=== PATIENT | female | born 1975 ===

== ENCOUNTER 2017-08-03 20:56 | Emergency (ER) | payer SELFPAY ==
[2017-08-03 21:11] VITALS: RESP 20; TEMP 97.9; O2SAT 100
--- NOTE | 2017-08-03 22:42 | C.PDOC ---
History Of Present Illness <Mady Hendrix - Last Filed: 08/03/17 23:20> <Andreas Olivares M - Last Filed: 08/04/17 00:56> 41 year old female presents to the ED for evaluation of a right-sided headache which has been intermittent for the past week. Patient states she slipped, fell , and hit the right side of her head against her dresser. Patient states she still has pain to the area and has been feeling "dizzy." she denies LOC, vision change, nausea, vomiting, extremity numbness/weakness. (Mady Hendrix) History Per: Patient History/Exam Limitations: no limitations Onset/Duration Of Symptoms: Days (1 week ) Current Symptoms Are (Timing): Still Present Quality: "Pain" Preceeding Symptoms: denies: Visual Disturbances Associated Symptoms: denies: Blurred Vision, Nausea, Vomiting, Extremity Weakness Additional History Per: Patient <Mady Hendrix - Last Filed: 08/03/17 23:20> <Andreas Olivares - Last Filed: 08/04/17 00:56> Time Seen by Provider: 08/03/17 21:22 Chief Complaint (Nursing): Headache Past Medical History Reviewed: Historical Data, Nursing Documentation, Vital Signs - Medical History PMH: No Chronic Diseases Surgical History: Cholecystectomy, Family History: States: Unknown Family Hx - Social History Hx Alcohol Use: No Hx Substance Use: No <Mady Hendrix - Last Filed: 08/03/17 23:20> Vital Signs: Last Vital Signs Temp 97.9 F 08/03/17 21:05 Pulse 87 08/03/17 21:05 Resp 20 08/03/17 21:05 BP 100/63 08/03/17 21:05 Pulse Ox 100 08/03/17 23:28 Review Of Systems Eyes: Negative for: Vision Change Gastrointestinal: Negative for: Nausea, Vomiting Neurological: Positive for: Headache (right-sided ), Dizziness. Negative for: Other (LOC ) <Mady Hendrix - Last Filed: 08/03/17 23:20> Physical Exam - Physical Exam Appears: Non-toxic, No Acute Distress Skin: Normal Color, Warm, Dry Head: Tenderness (mild to right temporal scalp area ), Swelling (mild to right temporal scalp area ), No Abrasion, No Laceration Eye(s): bilateral: Normal Inspection Oral Mucosa: Moist Neck: Normal ROM, No Midline Cervical Tenderness, No Paracervical Tenderness, Supple Chest: Symmetrical, No Deformity, No Tenderness Cardiovascular: Rhythm Regular Respiratory: Normal Breath Sounds Extremity: Normal ROM, Capillary Refill (less than 2 seconds) Neurological/Psych: Oriented x3, Normal Speech, Normal Cognition, Other (no focal deficits ) Gait: Steady <Mady Hendrix - Last Filed: 08/03/17 23:20> ED Course And Treatment O2 Sat by Pulse Oximetry: 100 (on RA) Pulse Ox Interpretation: Normal <Mady Hendrix - Last Filed: 08/03/17 23:20> Medical Decision Making <Mady Hendrix - Last Filed: 08/03/17 23:20> <Andreas Olivares - Last Filed: 08/04/17 00:56> Medical Decision Making: I discussed the risks of radiating. Patient prefers to undergo CT Head. CT head ordered and reviewed. (Mady Hendrix) ct head - nad, will discharge patient home to follow up with pmd in 2 days. ( Andreas Olivares) Disposition - Disposition Disposition Time: 23:20 - POA Present On Arrival: None <Mady Hendrix - Last Filed: 08/03/17 23:20> Counseled Patient/Family Regarding: Studies Performed, Diagnosis, Need For Followup, Rx Given <Andreas Olivares - Last Filed: 08/04/17 00:56> - Disposition Referrals: [facility] [Outside] Disposition: HOME/ ROUTINE Condition: STABLE Additional Instructions: follow up with your doctor or clinic in 2 days call to make an appointment take medications as prescribed return to hospital if symptoms worsens or progress Prescriptions: Naproxen [Naprosyn] 500 mg PO BID PRN #16 tab PRN Reason: Pain, Moderate (4-7) Instructions: Concussion (ED) Forms: [facility] ([place]), General Discharge Instructions - Clinical Impression Clinical Impression: Headache, 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 - Scribe Statement The provider has reviewed the documentation as recorded by the Scribe (Reina Camargo) <Mady Hendrix - Last Filed: 08/03/17 23:20> <Andreas Olivares - Last Filed: 08/04/17 00:56> - Scribe Statement All medical record entries made by the Scribe were at my direction and personally dictated by me. I have reviewed the chart and agree that the record accurately reflects my personal performance of the history, physical exam, medical decision making, and the department course for this patient. I have also personally directed, reviewed, and agree with the discharge instructions and disposition. (Mady Hendrix) Physician Patient Turnover Patient Signed Over To: Andreas Olivares Handoff Comments: Pending Ct scan <Mady Hendrix - Last Filed: 08/03/17 23:20>
--- NOTE | 2017-08-04 00:51 | CT ---
EXAM: CT Head Without Intravenous Contrast CLINICAL HISTORY: 41 years old, female; Pain; Headache and other: Injury 1 week ago, R/O bleed; Additional info: Head injury 1 week ago, R/O bleed TECHNIQUE: Axial computed tomography images of the head/brain without intravenous contrast. All CT scans at this facility use one or more dose reduction techniques, viz.: automated exposure control; ma/kV adjustment per patient size (including targeted exams where dose is matched to indication; i.e. head); or iterative reconstruction technique. 414 images are submitted. 3-D and MIP reconstruction images are submitted. Coronal and sagittal reformatted images were created and reviewed. COMPARISON: No relevant prior studies available. FINDINGS: Brain: Unremarkable. No hemorrhage. No significant white matter disease. No edema. Ventricles: Unremarkable. No ventriculomegaly. Bones/joints: Unremarkable. No acute fracture. Soft tissues: Unremarkable. Sinuses: Unremarkable. No acute sinusitis. Mastoid air cells: Unremarkable. No mastoid effusion. IMPRESSION: No evidence of an acute intracranial hemorrhage, midline shift or mass effect is identified.
[2017-08-04 01:00] VITALS: BP 111/72; PULSE 74
== END 2017-08-04 00:59 | disposition home or self-care (01) ==
LOC: C.ER 20:56
DX: S09.90XA Unspecified injury of head, initial encounter (principal); W01.190A Fall on same level from slipping, tripping and stumbling with subsequent striking against furniture, initial encounter; R51 Headache